=== PATIENT | female | born 1995 | race Caucasian/White ===

== ENCOUNTER 2019-03-27 10:05 | Observation (INO) | payer MEDICAID ==
[~2019-03-27] VITALS: Ht 170.2 cm; Wt 77.1 kg
[2019-03-27] MEDS ORDERED: FERR-252 PO (10:29)
[2019-03-27] MEDS ORDERED: PREN-380 PO (10:29)
== END 2019-03-27 11:40 | disposition home or self-care (01) ==
LOC: MLD 10:05
PROVIDERS: ADMIT Obstetrics & Gynecology; ATTEND Obstetrics & Gynecology
DX: O36.8120 Decreased fetal movements, second trimester, not applicable or unspecified (principal); Z3A.26 26 weeks gestation of pregnancy
CPT/HCPCS: 81000; G0378

== ENCOUNTER 2019-06-11 11:50 | Observation (INO) | payer MEDICAID ==
[~2019-06-11] VITALS: Ht 170.2 cm; Wt 86.2 kg
[~2019-06-11 11:50] MED LIST: FERR-252 PO; PREN-380 PO
[2019-06-11 12:48] VITALS: BP 111/68
== END 2019-06-11 15:35 | disposition home or self-care (01) ==
LOC: MLD 11:50
PROVIDERS: ADMIT Obstetrics & Gynecology; ATTEND Obstetrics & Gynecology
DX: O36.8130 Decreased fetal movements, third trimester, not applicable or unspecified (principal); Z3A.36 36 weeks gestation of pregnancy
CPT/HCPCS: 76819; 81000; G0378; Q0092

== ENCOUNTER 2019-06-26 19:34 | Observation (INO) | payer MEDICAID ==
[~2019-06-26] VITALS: Ht 170.2 cm; Wt 87.1 kg
[2019-06-26 20:08] VITALS: BP 120/60
== END 2019-06-26 20:25 | disposition home or self-care (01) ==
LOC: MLD 19:34
PROVIDERS: ADMIT Obstetrics & Gynecology; ATTEND Obstetrics & Gynecology
DX: O62.9 Abnormality of forces of labor, unspecified (principal); O42.92 Full-term premature rupture of membranes, unspecified as to length of time between rupture and onset of labor; Z3A.39 39 weeks gestation of pregnancy
CPT/HCPCS: 81000; G0378

== ENCOUNTER 2019-06-29 12:56 | Inpatient (IN) | payer MEDICAID ==
[~2019-06-29] VITALS: Ht 170.2 cm; Wt 89.8 kg
[2019-06-29] MEDS ORDERED: PROMETHAZINE 25 MG/ML VIAL IVP PRN (13:45)
[2019-06-29] MEDS ORDERED: NALBUPHINE 10 MG/ML AMP IVP PRN (13:45)
[2019-06-29] MEDS ORDERED: METHYLERGONOVINE 0.2 MG/ML AMP IM PRN (13:45)
[2019-06-29] MEDS ORDERED: CARBOPROST 250 MCG/ML AMP IM PRN (13:45)
[2019-06-29 13:54] VITALS: BP 131/85
[2019-06-29 14:21] LABS: APPEARANCE,URINE CLEAR (CLEAR); BILIRUBIN,URINE NEGATIVE (NEGATIVE); BLOOD, URINE NEGATIVE (NEGATIVE); COLOR,URINE OTHER (YELLOW); LEUKOCYTE ESTERASE ,URINE 1+ (NEGATIVE); NITRITE, URINE NEGATIVE (NEGATIVE); UGLUCOSE NEGATIVE (NEGATIVE)
[2019-06-29 14:28] LABS: BASOPHILS % (AUTO) 0.1 % (0.0-2.0); EOSINOPHILS % (AUTO) 0.1 % (0.0-4.0); HEMATOCRIT 38.3 % (36-48); HEMOGLOBIN 12.9 g/dL (12.0-16.0); LYMPHOCYTES # (AUTO) 1.1 K/uL (2.5-16.5); LYMPHOCYTES % (AUTO) 10.4 % (20.5-51.1); MEAN CORPUSCULAR HEMOGLOBIN 31 pg (27-31); MEAN CORPUSCULAR HGB CONC 34 g/dL (33-37); MONOCYTES # (AUTO) 0.5 K/uL (0.8-1.0); MONOCYTES % (AUTO) 5.1 % (1.7-9.3); NEUTROPHILS # (AUTO) 8.7 K/uL (1.8-7.7); NEUTROPHILS % (AUTO) 84.3 % (42.2-75.2); PLATELET COUNT (AUTO) 231 K/uL (140-450); RED BLOOD CELL COUNT(AUTO) 4.17 MIL/uL (4.20-5.40); RED CELL DISTRIBUTION WIDTH 13.2 % (11.6-13.7); WHITE BLOOD COUNT (AUTO) 10.3 K/uL (4.8-10.8)
[2019-06-29 14:30] LABS: ANION GAP 14.4 (8-16); CARBON DIOXIDE 23.1 mmol/L (21-32); CREATININE 0.6 mg/dL (0.6-1.3); POTASSIUM 3.5 mmol/L (3.5-5.1)
[2019-06-29 14:30] LABS: RBC,URINE NONE SEEN /HPF (0-5)
[2019-06-29 14:31] LABS: YEAST,URINE None Seen /HPF (None Seen)
[2019-06-29 14:36] LABS: ALBUMIN 2.9 g/dL (3.4-5.0); TOTAL BILIRUBIN 0.3 mg/dL (0.0-1.0)
[2019-06-29] MEDS ORDERED: MISOPROSTOL 25 MCG TAB ONE (15:08)
[2019-06-29] MEDS: LACTATED RINGERS 1,000 ML IV SCH ×2 (15:17→23:25)
[2019-06-29] MEDS ORDERED: MISOPROSTOL 25 MCG TAB VG SCH (18:00)
[2019-06-29] MEDS ORDERED: EPIDURAL KEYS MC ONE (23:46)
[2019-06-30] MEDS ORDERED: ROPIVACAINE 0.2%/NS PREMIX 100 ML EPI ONE ×2 (00:10→07:49)
[2019-06-30] MEDS: LACTATED RINGERS 1,000 ML IV SCH ×2 (00:45→06:50)
[2019-06-30] MEDS ORDERED: OXYTOCIN 20 UNITS/LR PREMIX 1,000 ML IV ONE (08:20)
[2019-06-30] MEDS ORDERED: OXYTOCIN 10 UNITS/ML VIAL IM PRN (11:05)
[2019-06-30] MEDS ORDERED: BENZOCAINE/MENTHOL 20%-0.5% 60 GM CAN TP PRN (11:05)
[2019-06-30] MEDS ORDERED: IBUPROFEN 800 MG TAB PO PRN (11:05)
[2019-06-30] MEDS ORDERED: MEASLES, MUMPS, AND RUBELLA 1 VIAL SQVAC PRN (11:05)
[2019-06-30] MEDS ORDERED: METHYLERGONOVINE 0.2 MG/ML AMP IM PRN (11:05)
[2019-06-30] MEDS ORDERED: METHYLERGONOVINE 0.2 MG TAB PO PRN (11:05)
[2019-07-01 08:45] LABS: HEMATOCRIT 32.4 % (36-48); HEMOGLOBIN 10.8 g/dL (12.0-16.0)
--- NOTE | 2019-07-01 08:53 | NUR ---
PATIENT HAS BEEN SCREENED AND CATEGORIZED LOW NUTRITION RISK. PATIENT WILL BE SEEN WITHIN 7 DAYS OF ADMISSION. 07/06/[address]
== END 2019-07-02 13:55 | disposition home or self-care (01) | DRG 560 ==
LOC: MLD 12:56 → MFCC 06-30 14:25
PROVIDERS: ADMIT Obstetrics & Gynecology; ATTEND Obstetrics & Gynecology
PROC: 10E0XZZ Delivery of Products of Conception, External Approach (ICD-10-PCS; principal; 2019-06-30)
PROC: 3E0R3BZ Introduction of Anesthetic Agent into Spinal Canal, Percutaneous Approach (ICD-10-PCS; 2019-06-30)
PROC: 00HU33Z Insertion of Infusion Device into Spinal Canal, Percutaneous Approach (ICD-10-PCS; 2019-06-30)
PROC: 10907ZC Drainage of Amniotic Fluid, Therapeutic from Products of Conception, Via Natural or Artificial Opening (ICD-10-PCS; 2019-06-30)
PROC: 3E033VJ Introduction of Other Hormone into Peripheral Vein, Percutaneous Approach (ICD-10-PCS; 2019-06-30)
PROC: 3E0P7VZ Introduction of Hormone into Female Reproductive, Via Natural or Artificial Opening (ICD-10-PCS; 2019-06-30)
PROC: 0UQMXZZ Repair Vulva, External Approach (ICD-10-PCS; 2019-06-30)
DX: O71.82 Other specified trauma to perineum and vulva (principal); D62 Acute posthemorrhagic anemia; Z37.0 Single live birth; Z3A.39 39 weeks gestation of pregnancy
CPT/HCPCS: 36415; 51702; 59200; 59409; 80053; 81001; 85018; 85025; 86592; 86886; 86900; 86901; 87086; J2590; J2795; J7120

== ENCOUNTER 2022-03-28 17:12 | Observation (INO) | payer MEDICAID ==
[~2022-03-28] VITALS: Ht 170.2 cm; Wt 87.1 kg
[2022-03-28 17:56] VITALS: BP 120/68
== END 2022-03-28 18:40 | disposition home or self-care (01) ==
LOC: MLD 17:12
PROVIDERS: ADMIT Obstetrics & Gynecology; ATTEND Obstetrics & Gynecology
DX: O62.9 Abnormality of forces of labor, unspecified (principal); Z3A.39 39 weeks gestation of pregnancy
CPT/HCPCS: 76819; G0378; G0379; Q0092